=== PATIENT | female | born 1965 | race Caucasian/White ===

== ENCOUNTER 2025-04-29 14:47 | Emergency (ER) | payer BC, SELFPAY ==
[2025-04-29] VITALS (7 sets, daily range): BP systolic 121–136; BP diastolic 68–92
[2025-04-29 14:51] LABS: Glucose - Point of Care 100 mg/dl (70-99)
--- NOTE | 2025-04-29 15:02 | ED.GENMED ---
History of Present Illness
General
Chief Complaint: Dizziness
Source: patient
Exam Limitations: none
Time Seen by Provider: 04/29/25 14:53
History of Present Illness
History of Present Illness:
59yoF with a history of insulin-dependent diabetes presenting via EMS for evaluation of dizziness. Patient was driving in her car this afternoon around 12:30 PM when she suddenly became dizzy. That felt like the room was spinning. She was able to
drive to her mother's house but was having difficulty ambulating out of the car. Dizziness is worse with head movements. Symptoms feel similar to her prior bout of vertigo many years ago. She is also experiencing nausea and had several episodes
of vomiting before arrival. She had some transient tingling in her left hand. She has now developed a headache. Her glucometer was reading high this afternoon but fingerstick glucose is 100 on arrival. She denies any ear pain, tenderness, or
recent illnesses. Patient received IV droperidol and fluids prehospital.
Phy Exam
General Physical Exam
General Presentation: well appearing
General Skin: warm and dry
General Habitus: normal
General Mental: alert
ENT Exam
ENT Exam: TM's normal and normocephalic
Eye Exam
Eye Exam: PERRL, EOMI and conjunctiva normal
Cardiovascular Exam
Cardiovascular Exam: regular rate/rhythm
Pulmonary Exam
Pulmonary Exam: lungs clear, no respiratory distress, no rales, no crackles, no rhonchi and no wheezing
Neurological Exam
Neurological Exam: alert, CN II-XII intact, no motor deficits, cerebellum intact and other (Normal finger to nose and heel to wang bilaterally)
[place] Com[place] Scale
Eye Opening: Spontaneous
Verbal Response: Oriented
Motor Response: Obeys Commands
GCS Total Score: 15
Skin Exam
Skin Exam: normal color and warm/dry
Psychiatric Exam
Psychiatric Exam: normal mood/affect
Course
Orders/Labs/Results
Orders:
Orders
04/29/25 15:01
Electrocardiogram (*1) Urgent
Reason for Study: Vertigo / Dizzy
CT Head W/o Iv Contrast Urgent
Comment:
Reason For Exam: dizziness
Cardiac Monitoring- Treatment ONCE
EKG- Treatment ONCE
0.9% Sodium Chloride 1000 ml [Nss] 1,000 ml IV BOLUS
Meclizine [Antivert] 25 mg PO NOW STA
04/29/25 15:12
Complete Blood Count/With Diff Urgent
Comprehensive Metabolic Panel Urgent
Troponin I Urgent
04/29/25 16:20
Potassium Chloride [KCl] 20 meq PO NOW STA
04/29/25 17:32
Meclizine [Antivert] 25 mg PO NOW STA
Abnormal Lab Results
04/29/25 04/29/25
14:50 15:12
MPV 10.6 H fL
(7.4-10.4)
Potassium 3.3 L mmol/L
(3.5-5.1)
Chloride 108 H mmol/L
(98-107)
BUN 18 H mg/dl
(7-17)
Glucose 105 H mg/dl
(70-99)
POC Glucose 100 H mg/dl
(70-99)
04/29/25 15:12
04/29/25 15:12
Vital Signs
Initial and Last Documented VS:
Initial Vital Signs
BP
127/87
04/29/25 14:49
Last Documented Vital Signs
Temp Pulse Resp BP Pulse Ox
97.5 F 77 16 136/74 100
04/29/25 15:07 04/29/25 17:00 04/29/25 17:00 04/29/25 17:00 04/29/25 17:00
MDM/Problems Addressed
Differential Diagnosis Includes:
59yoF here with dizziness that began this afternoon. Feels like room is spinning. Associated with n/v and headache. Remote hx of vertigo. VSS. She is sitting in a dark room during exam and keeps eyes closed. No nystagmus or ataxia noted.
Differential diagnosis includes: BPPV, vestibular neuronitis, labyrinthitis, Meniere's, vestibular migraine, less likely CVA
Initial ED plan: Check cardiac labs, EKG, and CT head. Meclizine and fluid bolus for symptoms.
*Pulse Oximetry
SaO2: 98
Oxygen Mode of Delivery: Room air
Patient hypoxic: no (100%)
*EKG
Interpreted by ED Provider?: Yes
EKG Intrepretation Date: 04/29/25
Heart Rate: 68
Rate: normal
Rhythm: sinus
[place]: normal axis
Interval: first degree heart block
QRS Pattern: normal QRS
Ischemia: no ischemia
*Critical Care Note
Total Time (30-74mins, 75-104mins- exclusive of procedures): Not Applicable
Update Note
Update Note:
EKG shows NSR without ischemic changes and troponin WNL. Potassium 3.[address] head shows mild diffuse distention of the ventricular system without other acute findings. On reassessment, patient reports that her dizziness has
completely resolved after taking a nap. She was able to ambulate to the bathroom without any difficulty. No indication for hospitalization. Prescriptions provided for meclizine and Zofran. [place] and was advised to f/u with her PCP as
well as neurology given her CT findings. Copy of radiology report provided. Patient discharged in stable condition.
ED Attending Note
-
Portions of this chart may have been created with voice recognition software.� Occasional wrong word or��sound alike� substitutions may have occurred due to the inherent limitations of voice recognition software.
Discharge Plan
Departure
Patient Disposition: Home (Routine Discharge)
Date of Disposition: 04/29/25
Time of Disposition: 17:16
Patient with high blood pressure during this ER visit?: No
Discharge Problem:
Vertigo
Instructions: Vertigo (a Type of Dizziness) (DC)
Prescriptions:
New
meclizine 25 mg tablet
25 mg PO TID PRN (Reason: dizziness) Qty: 20 0RF
ondansetron 4 mg tablet,disintegrating
4 mg PO Q6H PRN (Reason: nausea and vomiting) Qty: 20 0RF
Activity Restrictions/Additional Instructions:
Take meclizine as needed for dizziness. Take Zofran as needed for nausea.
Please follow-up with your family doctor. You should also see a neurologist for the mildly enlarged ventricles seen on today's CT scan.
Return to the ER with any new or worsening symptoms.
Interventions
Interventions:
*Risk Screen - Suicide Last Done: 04/29/25 15:06
*General Assessment Last Done: 04/29/25 15:06
*Neglect/Abuse Screening Last Done: 04/29/25 15:06
*ED- Fall Risk Assessment Last Done: 04/29/25 15:08
*ED COVID-19 Vaccine History Last Done: 04/29/25 15:08
*Nursing Disposition Last Done: 04/29/25 18:13
ED- Neurological Assessment Last Done: 04/29/25 15:08
ED- Cardiac Assessment Last Done: 04/29/25 15:08
Discharge Date and Time
Discharge Date/Time: 04/29/25 18:14
Print Language: PAKIST[place]
[2025-04-29] MEDS: NSS 1000 IV (15:14)
[2025-04-29 15:27] LABS: Hematocrit 39.2 % (37.0-47.0); Hemoglobin 13.7 g/dL (12.0-16.0); Mean Corp Hgb Conc. 34.9 g/dL (33.0-37.0); Mean Corpuscular Volume 85.4 fL (81.0-99.0); Nucleated Red Blood Cells % 0 %; Platelet Count 174 10^3/uL (130-400); Red Cell Dist. Width 12.7 % (11.5-14.5)
[2025-04-29 15:37] LABS: ALT (SGPT) 25 U/L (0-35); AST (SGOT) 24 U/L (14-36); Albumin 3.9 g/dl (3.5-5.0); Alkaline Phosphatase 48 U/L (38-126); Blood Urea Nitrogen 18 mg/dl (7-17); Calcium 9.2 mg/dl (8.4-10.2); Carbon Dioxide 26 mmol/L (22-30); Chloride 108 mmol/L (98-107); Estimated Creatinine Clearance 95 ml/min; Glucose 105 mg/dl (70-99); Potassium 3.3 mmol/L (3.5-5.1); Sodium 138 mmol/L (135-145); Total Protein 6.5 g/dl (6.3-8.2); eGFR > 60.00
[2025-04-29 15:49] LABS: Troponin I < 0.012 ng/ml
[2025-04-29] MEDS: KCL 20 MEQ PO (16:36)
[2025-04-29] MEDS: ANTIVERT 25 MG PO (17:32)
== END 2025-04-29 18:14 | disposition home or self-care (01) ==
LOC: EMR 14:47
PROVIDERS: Physician Assistant; EMERGENCY PHYSICIAN Emergency Medicine
DX: R42 Dizziness and giddiness (principal); E11.9 Type 2 diabetes mellitus without complications
CPT/HCPCS: 99284; 96360; 70450; 80053; 82962; 84484; 85025; 93005